=== PATIENT | female | born 1965 | race Caucasian/White ===

== ENCOUNTER 2016-12-11 21:49 | Emergency (ER) | payer MEDICAID ==
[~2016-12-11] VITALS: Ht 180.3 cm; Wt 72.6 kg
[2016-12-12] MEDS ORDERED: TETANUS-DIPTH-ACEL PERTUSSIS 0.5ML SYRG IM ONE (01:30)
[2016-12-12 02:15] LABS: Albumin 3.2 g/dL (3.4-5.0); Anion Gap 9 (5-15); Aspartate Aminotransferase 25 U/L (15-37); BUN/Creatinine Ratio 13.7; Blood Urea Nitrogen 32 mg/dL (7-18); Calcium 8.1 mg/dL (8.5-10.1); Carbon Dioxide 22 mmol/L (21-32); Chloride 111 mmol/L (98-107); GFR African American 28 mL/min; GFR Non-African American 24 mL/min; Glucose 99 mg/dL (74-106); Magnesium 2.4 mg/dL (1.6-2.6); Potassium 4.1 mmol/L (3.5-5.1); Sodium 142 mmol/L (136-145)
[2016-12-12 02:18] LABS: Alkaline Phosphatase 85 U/L (45-117); Bilirubin, Total 0.5 mg/dL (0.2-1.0); Total Protein 6.9 g/dL (6.4-8.2)
[2016-12-12] MEDS ORDERED: ASPirin 81 mg TAB PO ONE (02:30)
[2016-12-12 02:31] LABS: INR 0.96 (0.9-1.15); Partial Thromboplastin Time 25.9 sec (22.64-33.71); Prothrombin Time 10.5 sec (9.37-12.3)
[2016-12-12 02:46] LABS: Basophils # (auto) 0.1 uL; Basophils % (auto) 0.7 % (0.0-2.0); CONDITION Y; Eosinophils # (auto) 0.1 uL; Eosinophils % (auto) 0.9 % (0.0-7.0); Hematocrit 48.1 % (36.0-46.0); Hemoglobin 16.1 g/dL (12.2-16.2); Lymphocytes # (auto) 1.8 uL; Lymphocytes % (auto) 12.4 % (10.0-50.0); Mean Corpuscular Hemoglobin 31.1 pg (28.0-32.0); Mean Corpuscular Hgb Conc. 33.5 g/dL (32.0-36.0); Mean Corpuscular Volume 92.7 fL (80.0-100.0); Monocytes # (auto) 0.7 uL; Monocytes % (auto) 4.9 % (0.0-12.0); Neutrophils # (auto) 11.9 uL; Neutrophils % (auto) 81.1 % (37.0-80.0); Platelet Count (auto) 152 10^3/uL (140-450); Red Cell Distribution Width 14.9 % (11.6-16.0); White Blood Cell 14.7 10^3/uL (4.4-10.8)
[2016-12-12] MEDS ORDERED: SODIUM CHLORIDE 0.9% 1,000 ML IV SCH (04:17)
[2016-12-12] MEDS ORDERED: HYDROcodone-ACET 5/325MG TAB PO PRN (04:30)
[2016-12-12] MEDS ORDERED: LORazepam 0.5 MG TAB PO PRN (04:30)
[2016-12-12] MEDS ORDERED: ONDANSETRON HCL 4 MG/2 ML VIAL IV PRN (04:30)
[2016-12-12] MEDS ORDERED: NITROGLYCERIN 0.4 MG SL TAB SL PRN (04:30)
[2016-12-12] MEDS ORDERED: ACETAMINOPHEN 500 MG TAB PO PRN (04:30)
[2016-12-12] MEDS ORDERED: LACTULOSE 20Gm/30ML SOLN PO PRN (04:30)
[2016-12-12] MEDS ORDERED: TEMAZEPAM 15 MG CAP PO PRN (04:30)
[2016-12-12] MEDS ORDERED: MORPHINE SULFATE 4 MG/ML SYRG IV PRN ×2 (04:30)
[2016-12-12 05:00] VITALS: BP 126/72
[2016-12-12 05:11] LABS: Urine Bilirubin Negative (Negative); Urine Blood TRACE /uL (Negative); Urine Color Yellow (Yellow); Urine Glucose Normal (Normal); Urine Hyaline Cast FEW /lpf (0 - 2); Urine Ketone Negative (Negative); Urine Mucus FEW (None Seen); Urine Nitrite Negative (Negative); Urine RBC 3 /hpf (0 - 4); Urine Squamous Epithelial Cell FEW /hpf (<5); Urine Urobilinogen Normal (Negative)
[2016-12-12 05:32] LABS: Cholesterol 152 mg/dL (< 200); HDL Cholesterol 39 mg/dL (40-59); LDL Cholesterol 98 mg/dL (< 100); Triglycerides 103 mg/dL (< 150)
[2016-12-12] MEDS ORDERED: ENOXAPARIN SOD 30 MG/0.3 ML SYRINGE SC SCH (10:00)
[2016-12-13 13:04] LABS: Temperature: 23.4 C (20.0-25.0)
== END 2016-12-12 05:12 | disposition left against medical advice (07) ==
LOC: EDBD 21:49 → ER 21:53
DX: I63.9 Cerebral infarction, unspecified (principal); I10 Essential (primary) hypertension; L93.0 Discoid lupus erythematosus; I38 Endocarditis, valve unspecified
CPT/HCPCS: 36415; 70450; 71010; 80053; 80061; 80307; 80320; 81001; 82550; 82607; 82746; 83735; 84443; 84484; 84702; 85025; 85610; 85652; 85730; 87086; 90715; 93005; 94761